=== PATIENT | female | born 1965 ===

== ENCOUNTER 2017-05-21 10:06 | Emergency (ER) | payer SELFPAY ==
[2017-05-21] MEDS ORDERED: Ondansetron ODT 8 MG TAB ONE (12:26)
[2017-05-21] MEDS ORDERED: Ketorolac Tromethamine 60 MG/2 ML VIAL ONE (12:26)
== END 2017-05-21 13:19 | disposition home or self-care (01) ==
LOC: ERS 10:06
DX: F11.23 Opioid dependence with withdrawal (principal); I49.9 Cardiac arrhythmia, unspecified; F17.210 Nicotine dependence, cigarettes, uncomplicated
CPT/HCPCS: 96372; J1885